=== PATIENT | female | born 1985 | race Native Hawaiian/Other Pacific Islander ===

== ENCOUNTER 2020-09-03 14:07 | Outpatient (CLI) | payer BC | END 2020-09-03 20:52 | disposition home or self-care (01) | LOC: US 14:07 | PROVIDERS: ATTEND Internal Medicine Nephrology | DX: N18.31 Chronic kidney disease, stage 3a (principal) ==

== ENCOUNTER 2021-05-28 11:11 | Outpatient (CLI) | payer OTHER | END 2021-05-28 19:13 | disposition home or self-care (01) | LOC: MAMMO 11:11 | PROVIDERS: ATTEND Nurse Practitioner Family | DX: Z12.31 Encounter for screening mammogram for malignant neoplasm of breast (principal) ==

== ENCOUNTER 2021-10-01 12:18 | Outpatient (CLI) | payer BC | END 2021-10-01 18:59 | disposition home or self-care (01) | LOC: RAD 12:18 | PROVIDERS: ATTEND Nurse Practitioner Family | DX: M25.531 Pain in right wrist (principal); M79.631 Pain in right forearm; M79.641 Pain in right hand; W19.XXXA Unspecified fall, initial encounter ==